=== PATIENT | female | born 1950 | race Asian ===

== ENCOUNTER 2018-02-14 18:22 | Inpatient (IN) | payer MEDICARE, MEDICAID ==
--- NOTE | 2018-02-14 18:33 | ED Physician Chart ---
ED Chief Complaint/HPI - Patient Information Date Seen:: 02/14/18 Time Seen:: 18:20 Chief Complaint:: Agitation History of Present Illness:: onset x 2 days of agitation and aggressive behavior; no report of trauma, H/As, S/T, neck pain, C/P, SOB, Abd. Pain, A/N/V/D/C, fever, chills, SIs, or urinary s /s Historian:: Patient, EMS Review:: Nurse's Note Reviewed, Old Chart Reviewed, EMS run form Reviewed <Aditya Edge - Last Filed: 02/14/18 18:28> - Patient Information Allergies:: Allergies Allergy/AdvReac Type Severity Reaction Status Date / Time No Known Allergies Allergy Verified 02/14/18 18:32 Vitals:: Vital Signs - 8 hr 02/14/18 18:32 Temp 98.1 F HR 82 RR 16 BP 122/67 O2 Sat % 95 <Moira Cruz - Last Filed: 02/14/18 20:29> ED Review of Systems - Review of Systems General/Constitutional: No fever, No chills, No weight loss, No weakness, No diaphoresis, No edema, No loss of appetite Skin: No skin lesions, No rash, No bruising Head: No headache, No light-headedness Eyes: No loss of vision, No pain, No diplopia ENT: No earache, No nasal drainage, No sore throat, No tinnitus Neck: No neck pain, No swelling, No thyromegaly, No stiffness, No mass noted Cardio Vascular: No chest pain, No palpitations, No PND, No orthopnea, No edema Pulmonary: No SOB, No cough, No sputum, No wheezing GI: No nausea, No vomiting, No diarrhea, No pain, No melena, No hematochezia, No constipation, No hematemesis G/U: No dysuria, No frequency, No hematuria, No nacturia Shoe Laster: No vaginal discharge, No abnormal vaginal bleed, No contraction Musculoskeletal: No bone or joint pain, No back pain, No muscle pain Endocrine: No polyuria, No polydipsia Psychiatric: Prior psych history, Depression, Anxiety, No suicidal ideation, No homicidal ideation, No auditory hallucination, No visual hallucination Hematopoietic: No bruising, No lymphadenopathy Allergic/Immuno: No urticaria, No angioedema Neurological: No syncope, No focal symptoms, No weakness, No paresthesia, No headache, No seizure, No dizziness, Confusion, No vertigo <Aditya Edge - Last Filed: 02/14/18 18:28> ED Past Medical History - Past Medical History Obtainable: Yes Past Medical History: Dyslipidemia, Dementia Family History: HTN Social History: Non Smoker, No Alcohol, No Drug Use, Single, Care Facility Surgical History: None Psychiatricy History: Depression, Bipolar, Dementia Medication: Reviewed <Aditya Edge - Last Filed: 02/14/18 18:28> Family Medical History - Family Member Mother History Unknown: Yes <NancyMoira - Last Filed: 02/14/18 20:29> ED Physical Exam - Physical Examination General/Constitutional: Awake, Well-developed, well-nourished, Alert, No distress, GCS 15, Non-toxic appearing, Ambulatory Head: Atraumatic Eyes: Lids, conjuctiva normal, PERRL, EOMI Skin: Nl inspection, No rash, No skin lesions, No ecchymosis, Well hydrated, No lymphadenopathy ENMT: External ears, nose nl, TM canals nl, Nasal exam nl, Lips, teeth, gums nl , Oropharynx nl, Tonsils nl Neck: Nontender, Full ROM w/o pain, No JVD, No nuchal rigidity, No bruit, No mass, No stridor Respiratory: Nl effort/Exclusion, Clear to Auscultation, No Wheeze/Rhonchi/Rales Cardio Vascular: RRR, No murmur, gallop, rubs, NL S1 S2, Carotid/Femoral/Distal pulses equal bilaterally GI: No tenderness/rebounding/guarding, No organomegaly, No hernia, Normal BS's, Nondistended, No mass/bruits, No McBurney tenderness Other GI comments:: no pulsatile masses : No CVA tenderness Extremities: No tenderness or effusion, Full ROM, normal strength in all extremities, No edema, Normal digits & nails Neuro/Psych: Alert/oriented, DTR's symmetric, Normal sensory exam, Normal motor strength, Judgement/insight normal, Mood normal, Normal gait, No focal deficits Other Neuro/Psych comments:: + Psychomotor Agitation; no SIs; Mood/Affect: Stable Misc: Normal back, No paraspinal tenderness <Aditya Edge - Last Filed: 02/14/18 18:28> ED Labs/Radiology/EKG Results - Lab Results Results: Laboratory Tests 02/14/18 02/14/18 02/14/18 18:45 18:45 18:45 WBC 4.8 RBC 3.53 L Hgb 11.9 L Hct 35.4 L MCV 100.4 H MCH 33.7 H MCHC Differential 33.6 RDW 11.1 L Plt Count 328 MPV 7.2 Neutrophils % 62.7 Lymphocytes % 26.8 Monocytes % 7.9 Eosinophils % 2.3 Basophils % 0.3 Sodium 138 Potassium 3.8 Chloride 103 Carbon Dioxide 28.5 Anion Gap 10.3 BUN 13 Creatinine 0.6 Est GFR ( Amer) > 60.0 Est GFR (Non-Af Amer) > 60.0 BUN/Creatinine Ratio 21.7 Glucose 162 H Calcium 9.3 Total Bilirubin 0.5 AST 29 ALT 12 Alkaline Phosphatase 34 Total Protein 6.6 Albumin 4.0 Globulin 2.6 Albumin/Globulin Ratio 1.5 Triglycerides 57 Cholesterol 131 LDL Cholesterol Direct 68 L HDL Cholesterol 51 TSH 1.87 Salicylates < 25.0 L Acetaminophen < 10.0 L Ethyl Alcohol < 10 <Moira Cruz - Last Filed: 02/14/18 20:29> ED Septic Shock - . Is Septic Shock (SBP<90, OR Lactate>4 mmol\L) present?: No <Aditya Edge - Last Filed: 02/14/18 18:28> - . Is Septic Shock (SBP<90, OR Lactate>4 mmol\L) present?: No - <6hrs of presentation: Vital Signs: Vital Signs - 8 hr 02/14/18 18:32 Temp 98.1 F HR 82 RR 16 BP 122/67 O2 Sat % 95 <Moira Cruz - Last Filed: 02/14/18 20:29> ED Reassessment (Disposition) - Reassessment Reassessment Condition:: Improved - Diagnosis Diagnosis:: Agitation; Psychosis; Medical Clearance; Depression; Bipolar Disorder <Aditya Edge - Last Filed: 02/14/18 18:28> - Reassessment Reassessment:: Macrocytic anemia Admit to [facility] unit - Patient Disposition Discharge/Transfer:: Geropsych w/in this hosp Admitting Medical Physician:: Eddi Giang Admitting Psych Physician:: Avis Young <Moira Cruz - Last Filed: 02/14/18 20:29>
[2018-02-14 18:53] LABS: % BASOPHILS 0.3 % (0.0-2.0); % EOSINOPHILS 2.3 % (0.0-5.0); % LYMPHOCYTES 26.8 % (20.0-50.0); % MONOCYTES 7.9 % (2.0-10.0); % NEUTROPHILS 62.7 % (40.0-80.0); EOSINOPHILE ABSOLUTE 0.1 Th/cmm (0.1-0.4); HEMATOCRIT 35.4 % (41.0-60); HEMOGLOBIN 11.9 gm/dL (12-16); LYMPHOCYTE ABSOLUTE 1.3 Th/cmm (1.5-3.0); MEAN CELL VOLUME 100.4 fl (81-100); MEAN CORPUSCULAR HEMOGLOBIN 33.7 pg (27.0-31.0); MEAN CORPUSCULAR HGB CONC 33.6 pg (28.0-36.0); MEAN PLATELET VOLUME 7.2 fl; MONOCYTE ABSOLUTE 0.4 Th/cmm (0.3-1.0); PLATELET COUNT 328 Th/cmm (150-400); RED BLOOD COUNT 3.53 Mil/cmm (3.80-5.20); RED CELL DISTRIBUTION WIDTH 11.1 % (11.5-20.0); WHITE BLOOD COUNT 4.8 Th/cmm (4.8-10.8)
[2018-02-14 19:08] LABS: ACETAMINOPHEN < 10.0 ug/mL (10.0-30.0); ALB/GLOB RATIO 1.5 (1.0-1.8); ALKALINE PHOSPHATASE 34 U/L (34-104); ANION GAP 10.3 (7.0-16.0); BILIRUBIN,TOTAL 0.5 mg/dL (0.3-1.0); BUN - UREA NITROGEN 13 mg/dL (7-25); CALCIUM SERUM 9.3 mg/dL (8.6-10.3); CARBON DIOXIDE 28.5 mEq/L (21.0-31.0); CHLORIDE 103 mEq/L (98-107); CHOLESTEROL 131 mg/dL (<200); CREATININE - SERUM 0.6 mg/dL (0.6-1.2); GFR AFRICAN-AMERICAN > 60.0 ml/min (>90); GFR NON AFRICAN-AMERICAN > 60.0 ml/min; GLUCOSE 162 mg/dL (70-105); HDL -HIGH DENSITY LIPOPROTEIN 51 mg/dL (23-92); POTASSIUM SERUM 3.8 mEq/L (3.5-5.1); SGOT 29 U/L (13-39); SGPT/ALT 12 U/L (7-52); SODIUM SERUM 138 mEq/L (136-145); TOTAL PROTEIN,SERUM 6.6 gm/dL (6.0-8.3); TRIGLYCERIDES 57 mg/dL (<150)
[2018-02-14 19:14] LABS: SALICYLATES (ASPIRIN) < 25.0 mg/L (30.0-100.0)
[2018-02-14 21:23] LABS: A1C % 4.7 % (4.0-6.0)
[2018-02-14 21:43] VITALS: BP 115/60
[2018-02-14] MEDS ORDERED: Fleet Enema 135 mL RC PRN (22:01)
[2018-02-14] MEDS ORDERED: Magnesium Hydroxide (MOM) 30 mL UDC PO PRN (22:01)
[2018-02-14] MEDS ORDERED: [UNRECOGNIZED DRUG - OTHER] PO SCH (22:15)
[2018-02-14] MEDS ORDERED: ALENDRONATE SODIUM PO SCH (22:15)
[2018-02-14] MEDS ORDERED: VITAMIN D3 PO SCH (22:15)
[2018-02-15] MEDS ORDERED: Guaifenesin DM 10 ML UDC PO PRN (00:40)
[2018-02-15] MEDS: Calcium Carb/Vit D 500 mg/200 U Tab PO SCH (09:08)
[2018-02-15] MEDS: Escitalopram Oxalate 5 mg Tab PO SCH (09:08)
--- NOTE | 2018-02-15 23:01 | Psychiatric Evaluation ---
DATE OF SERVICE: 02/15/2018 IDENTIFYING DATA: The patient is a 67-year-old male resident of [facility]. Information obtained directly interviewing the patient as well as reviewing the admission papers. JUSTIFICATION FOR HOSPITALIZATION: The patient is admitted for his aggressive behavior, kicking, screaming and confused and getting easily agitated. HISTORY OF PRESENT ILLNESS: This is the first psychiatric hospitalization to [facility] for this patient who is being followed up by Dr. Giang on an outpatient basis. The patient has been treated with Lexapro and the patient is reported to have been getting out of control and not making any sense. The patient has been having difficult time at this time. The patient is not able to contract for safety and hence the patient has been referred over here for further stabilization. PAST PSYCHIATRIC HISTORY: Details are not known. MEDICAL HISTORY: Physical examination is requested by Dr. Giang. SUBSTANCE ABUSE HISTORY: None. PHYSICAL OR SEXUAL ABUSE HISTORY: None. LEGAL PROBLEMS: None at this time. STRENGTH AND ASSETS: The patient is not able to give any information, currently acutely confused. MENTAL STATUS EXAMINATION: Significant for patient being a 50-year-old, looking his stated age, superficially cooperative, screaming and yelling and very minimal verbalizations with this patient. The patient has no insight into his illness. The patient is alert and awake, but is not able to give any information as well as the cognitive questionnaire is concerned. DIAGNOSTIC IMPRESSION: AXIS I: Psychotic disorder, not otherwise specified. AXIS II: None. AXIS III: As per Dr. Giang. IMMEDIATE TREATMENT PLAN: The patient is going to be observed on inpatient unit, provided with supportive psychotherapy. The patient is going to be closely monitored. Once stabilized, the patient is going to be discharged to [facility] to be followed up on an outpatient basis. JOB# [id number]
--- NOTE | 2018-02-16 08:57 | Internal Medicine Prog Note ---
Internal Medicine Subjective - Subjective Service Date: 02/16/18 Patient seen and examined:: without staff Patient is:: awake, non-verbal, interactive, arousable, in bed, agitated, confused Patient Complaints of:: congestion Per staff patient has:: no adverse event Internal Medicine Objective - Results Result Diagrams: 02/14/18 18:45 02/14/18 18:45 Recent Labs: Laboratory Last Values WBC 4.8 Th/cmm (4.8-10.8) 02/14/18 18:45 RBC 3.53 Mil/cmm (3.80-5.20) L 02/14/18 18:45 Hgb 11.9 gm/dL (12-16) L 02/14/18 18:45 Hct 35.4 % (41.0-60) L 02/14/18 18:45 MCV 100.4 fl (81-100) H 02/14/18 18:45 MCH 33.7 pg (27.0-31.0) H 02/14/18 18:45 MCHC Differential 33.6 pg (28.0-36.0) 02/14/18 18:45 RDW 11.1 % (11.5-20.0) L 02/14/18 18:45 Plt Count 328 Th/cmm (150-400) 02/14/18 18:45 MPV 7.2 fl 02/14/18 18:45 Neutrophils % 62.7 % (40.0-80.0) 02/14/18 18:45 Lymphocytes % 26.8 % (20.0-50.0) 02/14/18 18:45 Monocytes % 7.9 % (2.0-10.0) 02/14/18 18:45 Eosinophils % 2.3 % (0.0-5.0) 18 18:45 Basophils % 0.3 % (0.0-2.0) 02/14/18 18:45 Sodium 138 mEq/L (136-145) 18 18:45 Potassium 3.8 mEq/L (3.5-5.1) 18 18:45 Chloride 103 mEq/L (98-107) 02/14/18 18:45 Carbon Dioxide 28.5 mEq/L (21.0-31.0) 18 18:45 Anion Gap 10.3 (7.0-16.0) 18 18:45 BUN 13 mg/dL (7-25) 18 18:45 Creatinine 0.6 mg/dL (0.6-1.2) 18 18:45 Est GFR ( Amer) > 60.0 ml/min (>90) 02/14/18 18:45 Est GFR (Non-Af Amer) > 60.0 ml/min 18 18:45 BUN/Creatinine Ratio 21.7 18 18:45 Glucose 162 mg/dL (70-105) H 02/14/18 18:45 Hemoglobin A1c % 4.7 % (4.0-6.0) 02/14/18 18:45 Calcium 9.3 mg/dL (8.6-10.3) 02/14/18 18:45 Total Bilirubin 0.5 mg/dL (0.3-1.0) 02/14/18 18:45 AST 29 U/L (13-39) 18 18:45 ALT 12 U/L (7-52) 18 18:45 Alkaline Phosphatase 34 U/L (34-104) 02/14/18 18:45 Total Protein 6.6 gm/dL (6.0-8.3) 02/14/18 18:45 Albumin 4.0 gm/dL (3.7-5.3) 02/14/18 18:45 Globulin 2.6 gm/dL 02/14/18 18:45 Albumin/Globulin Ratio 1.5 (1.0-1.8) 18 18:45 Triglycerides 57 mg/dL (<150) 18 18:45 Cholesterol 131 mg/dL (<200) 18 18:45 LDL Cholesterol Direct 68 mg/dL (75-193) L 18 18:45 HDL Cholesterol 51 mg/dL (23-92) 18 18:45 TSH 1.87 uIU/ml (0.34-5.60) 18 18:45 Salicylates < 25.0 mg/L (30.0-100.0) L 02/14/18 18:45 Acetaminophen < 10.0 ug/mL (10.0-30.0) L 02/14/18 18:45 Ethyl Alcohol < 10 mg/dL (0-10) 02/14/18 18:45 - Physical Exam Vitals and I&O: Vital Signs Temp 97.1 F 02/16/18 06:00 Pulse 74 02/16/18 06:00 Resp 20 02/16/18 06:00 BP 111/64 02/16/18 06:00 Pulse Ox 96 02/16/18 06:00 Intake & Output 02/15/18 02/16/18 02/16/18 18:59 06:59 18:59 Intake Total 500 Balance 500 Intake: Oral 500 Other: # Voids 2 # Bowel Movements 0 Active Medications: Current Medications Alendronate Sodium (Fosamax) 70 mg PO QFRI [facility] Stop: 04/18/18 06:29 Bisacodyl (Dulcolax 10 Mg Supp) 10 mg RC DAILY PRN PRN Reason: Constipation Stop: 04/15/18 22:00 Calcium/Vitamin D (Oscal W/Vitamin D) 1 tab PO DAILY [facility] Stop: 04/16/18 08:59 Last Admin: 02/15/18 09:08 Dose: Not Given Docusate Sodium (Colace) 100 mg PO DAILY [facility] Stop: 04/16/18 08:59 Last Admin: 02/15/18 09:08 Dose: Not Given Escitalopram Oxalate (Lexapro) 5 mg PO Q2D [facility]; Protocol Stop: 04/16/18 08:59 Last Admin: 02/15/18 09:08 Dose: Not Given Guaifenesin/Dextromethorphan (Robitussin Dm) 10 ml PO Q6H PRN PRN Reason: Cough Stop: 04/16/18 00:39 Lorazepam (Ativan) 0.5 mg PO Q6HR PRN; Protocol PRN Reason: Anxiety Stop: 04/15/18 22:05 Last Admin: 02/15/18 13:29 Dose: 0.5 mg Magnesium Hydroxide (Milk Of Magnesia) 30 ml PO DAILY PRN PRN Reason: Constipation Stop: 04/15/18 22:00 Miscellaneous (Optiven) 0.05 drop EACH EYE BID [facility] Stop: 04/16/18 08:59 Simvastatin (Zocor) 20 mg PO HS [facility]; Protocol Stop: 04/16/18 20:59 Last Admin: 02/15/18 20:45 Dose: 20 mg Sodium Phosphate (Fleet Enema) 133 ml RC DAILY PRN PRN Reason: Constipation Stop: 04/15/18 22:00 Vitamin D (Vitamin D3) 2,000 iu PO QFRI [facility] Stop: 04/18/18 06:29 Vitamin D (Vitamin D) 800 iu PO QFRI [facility] Stop: 04/18/18 06:29 Zolpidem Tartrate (Ambien) 5 mg PO HS PRN PRN Reason: Insomnia Stop: 04/15/18 21:43 Last Admin: 02/15/18 20:45 Dose: 5 mg General: weak, lethargic, congested, demented HEENT: NC/AT, PERRLA, EOMI, anicteric sclerae, throat clear, thyromegaly, dry oral mucosa Neck: Supple, No JVD, No thyromegaly Lungs: CTAB Cardiovascular: RRR, Normal S1, Normal S2 Abdomen: soft, non-tender, tender, non-distended, positive bowel sound Extremities: clear Neurological: no change Internal Medicine Assmt/Plan - Assessment Assessment: ALOC: on and off; observe closely. Agitation: better. Acute Psychosis: psychiatry consultation appreciated. Failure to thrive: work up in progreee. Weakness: fall precaution education. s/p CVA DVT prophylaxis.
[2018-02-16] MEDS: Calcium Carb/Vit D 500 mg/200 U Tab PO SCH (09:12)
--- NOTE | 2018-02-16 14:44 | History & Physical ---
ADMIT DATE: 02/14/2018 CHIEF COMPLAINT: Confusion, agitation with aggressive behavior developed in the nursing facility. HISTORY OF PRESENT ILLNESS: The patient is a 67-year-old female admitted from the Emergency Room to [facility] of [facility] by the ER physician. I was told by the nursing facility that the patient became more confused and agitated with aggressive behavior in the fci and that ____ was very concerned and would like to have the patient transferred to the Emergency Room for evaluation, which I agreed. The patient apparently did become more confused and agitated with acute psychosis. Her lab actually is unremarkable, but her mental status did change significantly from her baseline. The patient's TSH was normal at 1.87 and her blood sugar 164. The patient was unable to recognize me when she normally can recognize me easily. PAST MEDICAL HISTORY: Status post CVA, agitation, lot of psychosis, degenerative joint disease and anxiety. PAST SURGICAL HISTORY: Denies significant past surgical history. MEDICATIONS: See medication reconciliation list. ALLERGIES: No known drug allergies. FAMILY HISTORY: Noncontributory. SOCIAL HISTORY: The patient is not without any children, but she has very loving and a caring brother and nephew. REVIEW OF SYSTEMS: Not feasible despite much efforts made. PHYSICAL EXAMINATION: GENERAL: Well-developed thin female, in no acute distress. SKIN: Warm and dry. VITAL SIGNS: Basically stable. HEENT: Normocephalic, atraumatic. Pupils equal, round and reactive to light and accommodation. CHEST: Symmetrical. LUNGS: Few wheezing appreciated. CARDIAC: Normal sinus rhythm. S1 and S2. ABDOMEN: Benign, soft, nontender. EXTREMITIES: No clubbing, cyanosis or edema. Bilaterally 2+ equally. NEUROLOGICAL: Unremarkable. LABORATORY DATA: Reviewed. ASSESSMENT AND PLAN: 1. Acute altered level of consciousness: Probably multifactorial due to metabolic encephalopathy, dementia and acute psychosis. We will observe her closely. 2. Agitation: Observe closely and treat her p.r.n. if needed. 3. Acute psychosis: Psychiatry consultation requested. 4. Failure to thrive: Workup in progress. 5. Difficulty walking: Fall precaution, physical therapy. 6. History of mild cerebrovascular accident. 7. Deep venous thrombosis prophylaxis. [facility]# [id number]
[2018-02-16] MEDS: Polyvinyl Alcohol Ophth Soln 15 mL Bottle EACH EYE SCH (17:16)
--- NOTE | 2018-02-16 19:42 | Progress Notes ---
DATE: 02/16/2018 SUBJECTIVE: Staff was spoken to. The patient is interviewed. Mood is noted to be irritable. Affect is constricted. The patient has been not able to contact for any responses. The patient has been responding to internal stimuli and the patient's sleep is reported to be poor last night. Insight and judgment at this time are noted to be very much impaired. Impulse control is very poor. The patient is feeling restless at this time. The patient has difficult time to open up and then talk. ASSESSMENT: The patient is still impulsive and paranoid. PLAN: To add low dose of the Seroquel that is 12.5 mg and follow the patient with the supportive therapy. JOB# [id number]
[2018-02-17] MEDS ORDERED: Vitamin D3 2,000 IU SGL PO SCH (06:30)
[2018-02-17] MEDS: Escitalopram Oxalate 5 mg Tab PO SCH (09:59)
[2018-02-17] MEDS: Calcium Carb/Vit D 500 mg/200 U Tab PO SCH (10:00)
[2018-02-17] MEDS: Polyvinyl Alcohol Ophth Soln 15 mL Bottle EACH EYE SCH ×2 (10:00→16:20)
--- NOTE | 2018-02-17 23:25 | Internal Medicine Prog Note ---
Internal Medicine Subjective - Subjective Service Date: 02/17/18 Patient seen and examined:: without staff Patient is:: awake, non-verbal, interactive, arousable, in bed, agitated, confused Patient Complaints of:: congestion Per staff patient has:: no adverse event Internal Medicine Objective - Results Result Diagrams: 02/14/18 18:45 02/14/18 18:45 Recent Labs: Laboratory Last Values WBC 4.8 Th/cmm (4.8-10.8) 02/14/18 18:45 RBC 3.53 Mil/cmm (3.80-5.20) L 02/14/18 18:45 Hgb 11.9 gm/dL (12-16) L 02/14/18 18:45 Hct 35.4 % (41.0-60) L 02/14/18 18:45 MCV 100.4 fl (81-100) H 02/14/18 18:45 MCH 33.7 pg (27.0-31.0) H 02/14/18 18:45 MCHC Differential 33.6 pg (28.0-36.0) 02/14/18 18:45 RDW 11.1 % (11.5-20.0) L 02/14/18 18:45 Plt Count 328 Th/cmm (150-400) 02/14/18 18:45 MPV 7.2 fl 02/14/18 18:45 Neutrophils % 62.7 % (40.0-80.0) 02/14/18 18:45 Lymphocytes % 26.8 % (20.0-50.0) 02/14/18 18:45 Monocytes % 7.9 % (2.0-10.0) 02/14/18 18:45 Eosinophils % 2.3 % (0.0-5.0) 18 18:45 Basophils % 0.3 % (0.0-2.0) 18 18:45 Sodium 138 mEq/L (136-145) 18 18:45 Potassium 3.8 mEq/L (3.5-5.1) 18 18:45 Chloride 103 mEq/L (98-107) 02/14/18 18:45 Carbon Dioxide 28.5 mEq/L (21.0-31.0) 18 18:45 Anion Gap 10.3 (7.0-16.0) 18 18:45 BUN 13 mg/dL (7-25) 18 18:45 Creatinine 0.6 mg/dL (0.6-1.2) 18 18:45 Est GFR ( Amer) > 60.0 ml/min (>90) 02/14/18 18:45 Est GFR (Non-Af Amer) > 60.0 ml/min 18 18:45 BUN/Creatinine Ratio 21.7 18 18:45 Glucose 162 mg/dL (70-105) H 02/14/18 18:45 Hemoglobin A1c % 4.7 % (4.0-6.0) 02/14/18 18:45 Calcium 9.3 mg/dL (8.6-10.3) 02/14/18 18:45 Total Bilirubin 0.5 mg/dL (0.3-1.0) 02/14/18 18:45 AST 29 U/L (13-39) 18 18:45 ALT 12 U/L (7-52) 18 18:45 Alkaline Phosphatase 34 U/L (34-104) 02/14/18 18:45 Total Protein 6.6 gm/dL (6.0-8.3) 02/14/18 18:45 Albumin 4.0 gm/dL (3.7-5.3) 02/14/18 18:45 Globulin 2.6 gm/dL 02/14/18 18:45 Albumin/Globulin Ratio 1.5 (1.0-1.8) 18 18:45 Triglycerides 57 mg/dL (<150) 18 18:45 Cholesterol 131 mg/dL (<200) 18 18:45 LDL Cholesterol Direct 68 mg/dL (75-193) L 18 18:45 HDL Cholesterol 51 mg/dL (23-92) 18 18:45 TSH 1.87 uIU/ml (0.34-5.60) 18 18:45 Salicylates < 25.0 mg/L (30.0-100.0) L 02/14/18 18:45 Acetaminophen < 10.0 ug/mL (10.0-30.0) L 02/14/18 18:45 Ethyl Alcohol < 10 mg/dL (0-10) 02/14/18 18:45 RPR NONREACTIVE (NONREACTIVE) 02/14/18 18:45 - Physical Exam Vitals and I&O: Vital Signs Temp 98.1 F 02/17/18 22:15 Pulse 80 02/17/18 22:15 Resp 21 02/17/18 22:15 BP 108/54 02/17/18 22:15 Pulse Ox 95 02/17/18 22:15 Intake & Output 02/17/18 02/17/18 02/18/18 06:59 18:59 06:59 Intake Total 1000 Balance 1000 Intake: Oral 1000 Other: # Voids 2 # Bowel Movements 0 Active Medications: Current Medications Alendronate Sodium (Fosamax) 70 mg PO QFRI [facility] Stop: 04/18/18 06:29 Last Admin: 02/17/18 06:48 Dose: 70 mg Artificial Tears (Artificial Tears Ophth Soln) 1 drop EACH EYE BID [facility] Stop: 04/17/18 16:59 Last Admin: 02/17/18 16:20 Dose: 1 drop Bisacodyl (Dulcolax 10 Mg Supp) 10 mg RC DAILY PRN PRN Reason: Constipation Stop: 04/15/18 22:00 Calcium/Vitamin D (Oscal W/Vitamin D) 1 tab PO DAILY [facility] Stop: 04/16/18 08:59 Last Admin: 02/17/18 10:00 Dose: 1 tab Docusate Sodium (Colace) 100 mg PO DAILY [facility] Stop: 04/16/18 08:59 Last Admin: 02/17/18 10:00 Dose: 100 mg Escitalopram Oxalate (Lexapro) 5 mg PO Q2D [facility]; Protocol Stop: 04/16/18 08:59 Last Admin: 02/17/18 09:59 Dose: 5 mg Guaifenesin/Dextromethorphan (Robitussin Dm) 10 ml PO Q6H PRN PRN Reason: Cough Stop: 04/16/18 00:39 Lorazepam (Ativan) 0.5 mg PO Q6HR PRN; Protocol PRN Reason: Anxiety Stop: 04/15/18 22:05 Last Admin: 02/17/18 20:49 Dose: 0.5 mg Magnesium Hydroxide (Milk Of Magnesia) 30 ml PO DAILY PRN PRN Reason: Constipation Stop: 04/15/18 22:00 Quetiapine Fumarate (Seroquel) 12.5 mg PO HS [facility]; Protocol Stop: 04/17/18 20:59 Last Admin: 02/17/18 20:49 Dose: 12.5 mg Simvastatin (Zocor) 20 mg PO HS [facility]; Protocol Stop: 04/16/18 20:59 Last Admin: 02/17/18 20:50 Dose: 20 mg Sodium Phosphate (Fleet Enema) 133 ml RC DAILY PRN PRN Reason: Constipation Stop: 04/15/18 22:00 Vitamin D (Vitamin D3) 2,000 iu PO QFRI [facility] Stop: 04/18/18 06:29 Last Admin: 02/17/18 06:48 Dose: 2,000 iu Vitamin D (Vitamin D) 800 iu PO QFRI [facility] Stop: 04/18/18 06:29 Last Admin: 02/17/18 06:48 Dose: 800 iu Zolpidem Tartrate (Ambien) 5 mg PO HS PRN PRN Reason: Insomnia Stop: 04/15/18 21:43 Last Admin: 02/17/18 20:49 Dose: 5 mg General: weak, lethargic, congested, demented HEENT: NC/AT, PERRLA, EOMI, anicteric sclerae, throat clear, thyromegaly, dry oral mucosa Neck: Supple, No JVD, No thyromegaly Lungs: CTAB Cardiovascular: RRR, Normal S1, Normal S2 Abdomen: soft, non-tender, tender, non-distended, positive bowel sound Extremities: clear Neurological: no change Internal Medicine Assmt/Plan - Assessment Assessment: Failure to thrive: work up in progress. ALOC: on and off; observe closely. Agitation: better. Acute Psychosis: psychiatry consultation appreciated. Weakness: fall precaution education. s/p CVA DVT prophylaxis. Nutritional Asmnt/Malnutr-PDOC - Dietary Evaluation Malnutrition Findings (Please click <Entered> for more info): Nutritional Asmnt/Malnutrition Start: 02/17/18 14: 19 Text: Status: Complete Freq: Protocol: Document 02/17/18 14:19 TOI (Rec: 02/17/18 14:43 LCHENLorrie [email or web address]) Nutritional Asmnt/Malnutrition Patient General Information Nutritional Screening Moderate Risk Diagnosis psychosis Pertinent Medical Hx/Surgical Hx s/p CVA, agitation, psychosis, DJD, anxiety Subjective Information Spoke with RADHA Cash. Pt is non -verbal, tolerating current diet. Pt eats everything with feeding assistance. Per EMR, PO intake 25-50% of meals. Current Diet Order/ Nutrition Support pureed, fortified Pertinent Medications oscal w/ vit D, coalce, seroquel, vit D3, Vit D Pertinent Labs 02/14 glucose 162, A1c 4.7 Nutritional Hx/Data Height 1.55 m Height (Calculated Centimeters) 154.9 Current Weight (lbs) 65.771 kg Weight (Calculated Kilograms) 65.8 Weight (Calculated Grams) 05444.9 [place] Body Weight 105 Body Mass Index (BMI) 27.3 Weight Status Overweight GI Symptoms GI Symptoms None Last BM none Difficult in: None Skin Integrity/Comment: intact Current %PO Poor (25-49%) Estimated Nutritional Goals BEE in Kcals: Adj wt of IBW Calories/Kcals/Kg 25-30 adj wt 52kg Kcals Calculated 9270-4229 Protein: Adj wt of IBW Protein g/k Protein Calculated 52 Fluid: ml 7900-7519 Nutritional Problem No current Nutrition Prob Problem n/A Intervention/Recommendation Comments 1. Continue with pureed diet as ordered. Nurses please feed pt with each meals. 2. Monitor PO intake, wt, labs and skin integrity 3. F/U as low risk in 7 days, 02/24 Expected Outcomes/Goals Expected Outcomes/Goals 1. PO intake to meet at least 75% of nutritional needs. 2. Wt stability, skin to remain intact, labs to approach WNL.
--- NOTE | 2018-02-18 06:39 | Progress Notes ---
DATE: 02/17/2018 PSYCHIATRIC PROGRESS NOTE SUBJECTIVE: Staff was spoken to. The patient is interviewed. Mood is noted to be dysphoric. The patient has been trying to fight with the staff and the patient not allowing the staff to help her with any of the activities such as changing the diaper. The patient is not able to participate in any of the groups. The patient is bedridden most of the time. ASSESSMENT: The patient is still impulsive. PLAN: To continue the patient with supportive therapy and follow. JOB# [id number]
[2018-02-18] MEDS: Calcium Carb/Vit D 500 mg/200 U Tab PO SCH (09:03)
[2018-02-18] MEDS: Polyvinyl Alcohol Ophth Soln 15 mL Bottle EACH EYE SCH ×2 (09:04→17:41)
--- NOTE | 2018-02-18 12:52 | Internal Medicine Prog Note ---
Internal Medicine Subjective - Subjective Service Date: 02/18/18 Patient seen and examined:: without staff Patient is:: awake, non-verbal, interactive, arousable, in bed, agitated, confused Patient Complaints of:: congestion Per staff patient has:: no adverse event Internal Medicine Objective - Results Result Diagrams: 02/14/18 18:45 02/14/18 18:45 Recent Labs: Laboratory Last Values WBC 4.8 Th/cmm (4.8-10.8) 02/14/18 18:45 RBC 3.53 Mil/cmm (3.80-5.20) L 02/14/18 18:45 Hgb 11.9 gm/dL (12-16) L 02/14/18 18:45 Hct 35.4 % (41.0-60) L 02/14/18 18:45 MCV 100.4 fl (81-100) H 02/14/18 18:45 MCH 33.7 pg (27.0-31.0) H 02/14/18 18:45 MCHC Differential 33.6 pg (28.0-36.0) 02/14/18 18:45 RDW 11.1 % (11.5-20.0) L 02/14/18 18:45 Plt Count 328 Th/cmm (150-400) 02/14/18 18:45 MPV 7.2 fl 02/14/18 18:45 Neutrophils % 62.7 % (40.0-80.0) 02/14/18 18:45 Lymphocytes % 26.8 % (20.0-50.0) 02/14/18 18:45 Monocytes % 7.9 % (2.0-10.0) 02/14/18 18:45 Eosinophils % 2.3 % (0.0-5.0) 18 18:45 Basophils % 0.3 % (0.0-2.0) 18 18:45 Sodium 138 mEq/L (136-145) 18 18:45 Potassium 3.8 mEq/L (3.5-5.1) 18 18:45 Chloride 103 mEq/L (98-107) 02/14/18 18:45 Carbon Dioxide 28.5 mEq/L (21.0-31.0) 18 18:45 Anion Gap 10.3 (7.0-16.0) 18 18:45 BUN 13 mg/dL (7-25) 18 18:45 Creatinine 0.6 mg/dL (0.6-1.2) 18 18:45 Est GFR ( Amer) > 60.0 ml/min (>90) 02/14/18 18:45 Est GFR (Non-Af Amer) > 60.0 ml/min 18 18:45 BUN/Creatinine Ratio 21.7 18 18:45 Glucose 162 mg/dL (70-105) H 02/14/18 18:45 Hemoglobin A1c % 4.7 % (4.0-6.0) 02/14/18 18:45 Calcium 9.3 mg/dL (8.6-10.3) 02/14/18 18:45 Total Bilirubin 0.5 mg/dL (0.3-1.0) 02/14/18 18:45 AST 29 U/L (13-39) 18 18:45 ALT 12 U/L (7-52) 18 18:45 Alkaline Phosphatase 34 U/L (34-104) 02/14/18 18:45 Total Protein 6.6 gm/dL (6.0-8.3) 02/14/18 18:45 Albumin 4.0 gm/dL (3.7-5.3) 02/14/18 18:45 Globulin 2.6 gm/dL 02/14/18 18:45 Albumin/Globulin Ratio 1.5 (1.0-1.8) 18 18:45 Triglycerides 57 mg/dL (<150) 18 18:45 Cholesterol 131 mg/dL (<200) 18 18:45 LDL Cholesterol Direct 68 mg/dL (75-193) L 18 18:45 HDL Cholesterol 51 mg/dL (23-92) 18 18:45 TSH 1.87 uIU/ml (0.34-5.60) 18 18:45 Salicylates < 25.0 mg/L (30.0-100.0) L 02/14/18 18:45 Acetaminophen < 10.0 ug/mL (10.0-30.0) L 02/14/18 18:45 Ethyl Alcohol < 10 mg/dL (0-10) 02/14/18 18:45 RPR NONREACTIVE (NONREACTIVE) 02/14/18 18:45 - Physical Exam Vitals and I&O: Vital Signs Temp 98.1 F 02/17/18 22:15 Pulse 80 02/17/18 22:15 Resp 21 02/17/18 22:15 BP 108/54 02/17/18 22:15 Pulse Ox 95 02/17/18 22:15 Intake & Output 02/17/18 02/18/18 02/18/18 18:59 06:59 18:59 Intake Total 1000 Balance 1000 Intake: Oral 1000 Other: # Voids 2 # Bowel Movements 0 Active Medications: Current Medications Alendronate Sodium (Fosamax) 70 mg PO QFRI [facility] Stop: 04/18/18 06:29 Last Admin: 02/17/18 06:48 Dose: 70 mg Artificial Tears (Artificial Tears Ophth Soln) 1 drop EACH EYE BID [facility] Stop: 04/17/18 16:59 Last Admin: 02/18/18 09:04 Dose: 1 drop Bisacodyl (Dulcolax 10 Mg Supp) 10 mg RC DAILY PRN PRN Reason: Constipation Stop: 04/15/18 22:00 Calcium/Vitamin D (Oscal W/Vitamin D) 1 tab PO DAILY [facility] Stop: 04/16/18 08:59 Last Admin: 02/18/18 09:03 Dose: 1 tab Docusate Sodium (Colace) 100 mg PO DAILY [facility] Stop: 04/16/18 08:59 Last Admin: 02/18/18 09:04 Dose: Not Given Escitalopram Oxalate (Lexapro) 5 mg PO Q2D [facility]; Protocol Stop: 04/16/18 08:59 Last Admin: 02/17/18 09:59 Dose: 5 mg Guaifenesin/Dextromethorphan (Robitussin Dm) 10 ml PO Q6H PRN PRN Reason: Cough Stop: 04/16/18 00:39 Lorazepam (Ativan) 0.5 mg PO Q6HR PRN; Protocol PRN Reason: Anxiety Stop: 04/15/18 22:05 Last Admin: 02/17/18 20:49 Dose: 0.5 mg Magnesium Hydroxide (Milk Of Magnesia) 30 ml PO DAILY PRN PRN Reason: Constipation Stop: 04/15/18 22:00 Quetiapine Fumarate (Seroquel) 25 mg PO HS [facility]; Protocol Stop: 04/19/18 20:59 Simvastatin (Zocor) 20 mg PO HS [facility]; Protocol Stop: 04/16/18 20:59 Last Admin: 02/17/18 20:50 Dose: 20 mg Sodium Phosphate (Fleet Enema) 133 ml RC DAILY PRN PRN Reason: Constipation Stop: 04/15/18 22:00 Vitamin D (Vitamin D3) 2,000 iu PO QFRI [facility] Stop: 04/18/18 06:29 Last Admin: 02/17/18 06:48 Dose: 2,000 iu Vitamin D (Vitamin D) 800 iu PO QFRI [facility] Stop: 04/18/18 06:29 Last Admin: 02/17/18 06:48 Dose: 800 iu Zolpidem Tartrate (Ambien) 5 mg PO HS PRN PRN Reason: Insomnia Stop: 04/15/18 21:43 Last Admin: 02/17/18 20:49 Dose: 5 mg General: weak, lethargic, congested, demented HEENT: NC/AT, PERRLA, EOMI, anicteric sclerae, throat clear, thyromegaly, dry oral mucosa Neck: Supple, No JVD, No thyromegaly Lungs: CTAB Cardiovascular: RRR, Normal S1, Normal S2 Abdomen: soft, non-tender, tender, non-distended, positive bowel sound Extremities: clear Neurological: no change Internal Medicine Assmt/Plan - Assessment Assessment: Weakness: fall precaution education. Failure to thrive: work up in progress. ALOC: on and off; observe closely. Agitation: better. Acute Psychosis: psychiatry consultation appreciated. s/p CVA DVT prophylaxis. Nutritional Asmnt/Malnutr-PDOC - Dietary Evaluation Malnutrition Findings (Please click <Entered> for more info): Nutritional Asmnt/Malnutrition Start: 02/17/18 14: 19 Text: Status: Complete Freq: Protocol: Document 02/17/18 14:19 ROSAG (Rec: 02/17/18 14:43 ROSAG [id number]) Nutritional Asmnt/Malnutrition Patient General Information Nutritional Screening Moderate Risk Diagnosis psychosis Pertinent Medical Hx/Surgical Hx s/p CVA, agitation, psychosis, DJD, anxiety Subjective Information Spoke with RADHA Cash. Pt is non -verbal, tolerating current diet. Pt eats everything with feeding assistance. Per EMR, PO intake 25-50% of meals. Current Diet Order/ Nutrition Support pureed, fortified Pertinent Medications oscal w/ vit D, coalce, seroquel, vit D3, Vit D Pertinent Labs 02/14 glucose 162, A1c 4.7 Nutritional Hx/Data Height 1.55 m Height (Calculated Centimeters) 154.9 Current Weight (lbs) 65.771 kg Weight (Calculated Kilograms) 65.8 Weight (Calculated Grams) 16926.9 [place] Body Weight 105 Body Mass Index (BMI) 27.3 Weight Status Overweight GI Symptoms GI Symptoms None Last BM none Difficult in: None Skin Integrity/Comment: intact Current %PO Poor (25-49%) Estimated Nutritional Goals BEE in Kcals: Adj wt of IBW Calories/Kcals/Kg 25-30 adj wt 52kg Kcals Calculated 1423-6311 Protein: Adj wt of IBW Protein g/k Protein Calculated 52 Fluid: ml 1607-2814 Nutritional Problem No current Nutrition Prob Problem n/A Intervention/Recommendation Comments 1. Continue with pureed diet as ordered. Nurses please feed pt with each meals. 2. Monitor PO intake, wt, labs and skin integrity 3. F/U as low risk in 7 days, 02/24 Expected Outcomes/Goals Expected Outcomes/Goals 1. PO intake to meet at least 75% of nutritional needs. 2. Wt stability, skin to remain intact, labs to approach WNL.
--- NOTE | 2018-02-18 17:45 | Progress Notes ---
DATE: 02/18/2018 SUBJECTIVE: Staff was spoken to. The patient is interviewed. Mood is noted to be less irritable. The patient has been isolative and withdrawn. The patient has been taking most of the time. The patient is currently on 12.5 mg of the Seroquel at night time and has been able to tolerate the medications. No side effects to the medications are noted. The patient has been able to tolerate the medication. In view of the paranoia and agitation, the Seroquel is going to be increased to 25 mg and the patient is going to be followed up with the supportive therapy. ASSESSMENT: The patient is still impulsive. PLAN: To continue the patient with the current medications and followup. [facility]# [id number]
--- NOTE | 2018-02-19 10:42 | Consultation ---
DATE OF CONSULTATION: 02/17/2018 REQUESTING PHYSICIAN: Avis Young MD TYPE OF CONSULTATION: Psychology. HISTORY OF PRESENT ILLNESS: The patient is a 67-year-old female. The patient is a resident of [facility]. The following is by review of the medical record and by the patient's self-report. The patient is being admitted due to aggressive behavior. Staff at the patient's facility report that she has been kicking and screaming at staff members as well as other residents. The patient appears to be easily agitated during the clinical interview. The patient appears to be confused. The patient is not making much sense during the clinical assessment. The patient is unable to verbally contract for safety. The patient did not answer questions about suicidal ideation, plan or intention. PAST MEDICAL HISTORY: Please see history and physical by Dr. Giang. PAST PSYCHIATRIC HISTORY: No records are available. Details are unknown. SUBSTANCE ABUSE HISTORY: The patient did not answer these questions. PSYCHOSOCIAL HISTORY: The patient did not answer these questions. The patient presents as quite confused. She did not answer questions about occupation or educational history or spiritism affiliation. She did not answer questions about family involvement or relationships. The patient did not answer questions about history of physical or sexual abuse or current legal problems. MENTAL STATUS EXAMINATION: The patient appears to be her stated age. The patient's attitude is superficially cooperative. Speech is loud with yelling episodes during the clinical interview. Eye contact is poor. Mood is irritable. Affect is mood congruent and reactive. Thought process shows to be confused. The patient did not answer questions about suicidal ideation, plan or intention. The patient denied any auditory or visual hallucinations. There is evidence at present of possible paranoid ideation. The patient is limited in giving responses verbally. Concentration is poor. Impulse control is inadequate. The patient did not participate in the memory assessment. Sensorium is alert and oriented to self only. The patient did not participate in the interpretation of proverbs. Insight is poor. Judgment is poor. DIAGNOSTIC IMPRESSION: AXIS I: Psychotic disorder, not otherwise specified. AXIS II: Deferred. AXIS III: Per Dr. Giang. TREATMENT PLAN: The patient has been seen by Dr. Young for psychiatric evaluation and further management of the patient's psychotropic medications. We will provide supportive psychotherapy to include reality orientation, differentiation and integration. We will provide limit setting and de-escalation. We will provide motivational enhancement for the patient to become compliant and stay compliant with all aspects of her care and treatment. We will provide coping strategies for phase of life issues. We will encourage the patient to be able to demonstrate emotional and self-regulation prior to discharge. Thank you, Dr. Young for this consult and the opportunity to participate in this patient's care. [facility]# [id number] TORRI
[2018-02-19] MEDS: Calcium Carb/Vit D 500 mg/200 U Tab PO SCH (12:09)
[2018-02-19] MEDS: Escitalopram Oxalate 5 mg Tab PO SCH (12:09)
[2018-02-19] MEDS: Polyvinyl Alcohol Ophth Soln 15 mL Bottle EACH EYE SCH ×2 (12:09→17:16)
--- NOTE | 2018-02-19 22:11 | Progress Notes ---
DATE: 02/19/2018 PSYCHIATRIC PROGRESS NOTE SUBJECTIVE: Staff was spoken to. The patient is interviewed. Mood is noted to be irritable. Affect is constricted. The patient's family came to visit and they want the patient to have the physical therapy and the patient at this time is not able to get up and walk. The patient has been getting easily irritable and angry. The patient is currently on 25 mg of the Seroquel and has been able to tolerate the medications. No side effects to the medications are noted. ASSESSMENT: The patient is still psychotic and impulsive. PLAN: To continue the patient with the supportive therapy and followup. [facility]# [id number]
--- NOTE | 2018-02-19 23:39 | Internal Medicine Prog Note ---
Internal Medicine Subjective - Subjective Service Date: 02/19/18 Patient seen and examined:: without staff Patient is:: awake, non-verbal, interactive, arousable, in bed, agitated, confused Patient Complaints of:: congestion Per staff patient has:: no adverse event Internal Medicine Objective - Results Result Diagrams: 02/14/18 18:45 02/14/18 18:45 Recent Labs: Laboratory Last Values WBC 4.8 Th/cmm (4.8-10.8) 02/14/18 18:45 RBC 3.53 Mil/cmm (3.80-5.20) L 02/14/18 18:45 Hgb 11.9 gm/dL (12-16) L 02/14/18 18:45 Hct 35.4 % (41.0-60) L 02/14/18 18:45 MCV 100.4 fl (81-100) H 02/14/18 18:45 MCH 33.7 pg (27.0-31.0) H 02/14/18 18:45 MCHC Differential 33.6 pg (28.0-36.0) 02/14/18 18:45 RDW 11.1 % (11.5-20.0) L 02/14/18 18:45 Plt Count 328 Th/cmm (150-400) 02/14/18 18:45 MPV 7.2 fl 02/14/18 18:45 Neutrophils % 62.7 % (40.0-80.0) 02/14/18 18:45 Lymphocytes % 26.8 % (20.0-50.0) 02/14/18 18:45 Monocytes % 7.9 % (2.0-10.0) 02/14/18 18:45 Eosinophils % 2.3 % (0.0-5.0) 18 18:45 Basophils % 0.3 % (0.0-2.0) 02/14/18 18:45 Sodium 138 mEq/L (136-145) 18 18:45 Potassium 3.8 mEq/L (3.5-5.1) 18 18:45 Chloride 103 mEq/L (98-107) 02/14/18 18:45 Carbon Dioxide 28.5 mEq/L (21.0-31.0) 18 18:45 Anion Gap 10.3 (7.0-16.0) 18 18:45 BUN 13 mg/dL (7-25) 18 18:45 Creatinine 0.6 mg/dL (0.6-1.2) 18 18:45 Est GFR ( Amer) > 60.0 ml/min (>90) 02/14/18 18:45 Est GFR (Non-Af Amer) > 60.0 ml/min 18 18:45 BUN/Creatinine Ratio 21.7 18 18:45 Glucose 162 mg/dL (70-105) H 02/14/18 18:45 Hemoglobin A1c % 4.7 % (4.0-6.0) 02/14/18 18:45 Calcium 9.3 mg/dL (8.6-10.3) 02/14/18 18:45 Total Bilirubin 0.5 mg/dL (0.3-1.0) 02/14/18 18:45 AST 29 U/L (13-39) 18 18:45 ALT 12 U/L (7-52) 18 18:45 Alkaline Phosphatase 34 U/L (34-104) 02/14/18 18:45 Total Protein 6.6 gm/dL (6.0-8.3) 02/14/18 18:45 Albumin 4.0 gm/dL (3.7-5.3) 02/14/18 18:45 Globulin 2.6 gm/dL 02/14/18 18:45 Albumin/Globulin Ratio 1.5 (1.0-1.8) 18 18:45 Triglycerides 57 mg/dL (<150) 18 18:45 Cholesterol 131 mg/dL (<200) 18 18:45 LDL Cholesterol Direct 68 mg/dL (75-193) L 18 18:45 HDL Cholesterol 51 mg/dL (23-92) 18 18:45 TSH 1.87 uIU/ml (0.34-5.60) 18 18:45 Salicylates < 25.0 mg/L (30.0-100.0) L 02/14/18 18:45 Acetaminophen < 10.0 ug/mL (10.0-30.0) L 02/14/18 18:45 Ethyl Alcohol < 10 mg/dL (0-10) 02/14/18 18:45 RPR NONREACTIVE (NONREACTIVE) 02/14/18 18:45 - Physical Exam Vitals and I&O: Vital Signs Temp 98.4 F 02/19/18 20:16 Pulse 88 02/19/18 20:16 Resp 19 02/19/18 20:16 BP 120/70 02/19/18 20:16 Pulse Ox 96 02/19/18 20:16 Intake & Output 02/19/18 02/19/18 02/20/18 06:59 18:59 06:59 Intake Total 1200 120 Balance 1200 120 Intake: Oral 1200 120 Other: # Voids 2 1 # Bowel Movements 0 Active Medications: Current Medications Alendronate Sodium (Fosamax) 70 mg PO QFRI [facility] Stop: 04/18/18 06:29 Last Admin: 02/17/18 06:48 Dose: 70 mg Artificial Tears (Artificial Tears Ophth Soln) 1 drop EACH EYE BID [facility] Stop: 04/17/18 16:59 Last Admin: 02/19/18 17:16 Dose: 1 drop Bisacodyl (Dulcolax 10 Mg Supp) 10 mg RC DAILY PRN PRN Reason: Constipation Stop: 04/15/18 22:00 Calcium/Vitamin D (Oscal W/Vitamin D) 1 tab PO DAILY [facility] Stop: 04/16/18 08:59 Last Admin: 02/19/18 12:09 Dose: Not Given Docusate Sodium (Colace) 100 mg PO DAILY [facility] Stop: 04/16/18 08:59 Last Admin: 02/19/18 12:09 Dose: Not Given Escitalopram Oxalate (Lexapro) 5 mg PO Q2D [facility]; Protocol Stop: 04/16/18 08:59 Last Admin: 02/19/18 12:09 Dose: Not Given Guaifenesin/Dextromethorphan (Robitussin Dm) 10 ml PO Q6H PRN PRN Reason: Cough Stop: 04/16/18 00:39 Lorazepam (Ativan) 0.5 mg PO Q6HR PRN; Protocol PRN Reason: Anxiety Stop: 04/15/18 22:05 Last Admin: 07/22/18 23:05 Dose: 0.5 mg Magnesium Hydroxide (Milk Of Magnesia) 30 ml PO DAILY PRN PRN Reason: Constipation Stop: 04/15/18 22:00 Quetiapine Fumarate (Seroquel) 25 mg PO HS [facility]; Protocol Stop: 04/19/18 20:59 Last Admin: 02/19/18 20:13 Dose: 25 mg Simvastatin (Zocor) 20 mg PO HS [facility]; Protocol Stop: 04/16/18 20:59 Last Admin: 02/19/18 20:13 Dose: 20 mg Sodium Phosphate (Fleet Enema) 133 ml RC DAILY PRN PRN Reason: Constipation Stop: 04/15/18 22:00 Vitamin D (Vitamin D3) 2,000 iu PO QFRI [facility] Stop: 04/18/18 06:29 Last Admin: 02/17/18 06:48 Dose: 2,000 iu Vitamin D (Vitamin D) 800 iu PO QFRI [facility] Stop: 04/18/18 06:29 Last Admin: 02/17/18 06:48 Dose: 800 iu Zolpidem Tartrate (Ambien) 5 mg PO HS PRN PRN Reason: Insomnia Stop: 04/15/18 21:43 Last Admin: 02/19/18 20:18 Dose: 5 mg General: weak, lethargic, congested, demented HEENT: NC/AT, PERRLA, EOMI, anicteric sclerae, throat clear, thyromegaly, dry oral mucosa Neck: Supple, No JVD, No thyromegaly Lungs: CTAB Cardiovascular: RRR, Normal S1, Normal S2 Abdomen: soft, non-tender, tender, non-distended, positive bowel sound Extremities: clear Neurological: no change Internal Medicine Assmt/Plan - Assessment Assessment: ALOC: on and off; observe closely. Weakness: fall precaution education. Failure to thrive: work up in progress. Agitation: better. Acute Psychosis: psychiatry consultation appreciated. s/p CVA DVT prophylaxis. D/W family. Nutritional Asmnt/Malnutr-PDOC - Dietary Evaluation Malnutrition Findings (Please click <Entered> for more info): Nutritional Asmnt/Malnutrition Start: 02/17/18 14: 19 Text: Status: Complete Freq: Protocol: Document 02/17/18 14:19 TOI (Rec: 02/17/18 14:43 TOI [email or web address]) Nutritional Asmnt/Malnutrition Patient General Information Nutritional Screening Moderate Risk Diagnosis psychosis Pertinent Medical Hx/Surgical Hx s/p CVA, agitation, psychosis, DJD, anxiety Subjective Information Spoke with RADHA Cash. Pt is non -verbal, tolerating current diet. Pt eats everything with feeding assistance. Per EMR, PO intake 25-50% of meals. Current Diet Order/ Nutrition Support pureed, fortified Pertinent Medications oscal w/ vit D, coalce, seroquel, vit D3, Vit D Pertinent Labs 02/14 glucose 162, A1c 4.7 Nutritional Hx/Data Height 1.55 m Height (Calculated Centimeters) 154.9 Current Weight (lbs) 65.771 kg Weight (Calculated Kilograms) 65.8 Weight (Calculated Grams) 03975.9 [place] Body Weight 105 Body Mass Index (BMI) 27.3 Weight Status Overweight GI Symptoms GI Symptoms None Last BM none Difficult in: None Skin Integrity/Comment: intact Current %PO Poor (25-49%) Estimated Nutritional Goals BEE in Kcals: Adj wt of IBW Calories/Kcals/Kg 25-30 adj wt 52kg Kcals Calculated 3156-4168 Protein: Adj wt of IBW Protein g/k Protein Calculated 52 Fluid: ml 6010-6904 Nutritional Problem No current Nutrition Prob Problem n/A Intervention/Recommendation Comments 1. Continue with pureed diet as ordered. Nurses please feed pt with each meals. 2. Monitor PO intake, wt, labs and skin integrity 3. F/U as low risk in 7 days, 02/24 Expected Outcomes/Goals Expected Outcomes/Goals 1. PO intake to meet at least 75% of nutritional needs. 2. Wt stability, skin to remain intact, labs to approach WNL.
[2018-02-20] MEDS: Calcium Carb/Vit D 500 mg/200 U Tab PO SCH (13:52)
[2018-02-20] MEDS: Polyvinyl Alcohol Ophth Soln 15 mL Bottle EACH EYE SCH (13:52)
--- NOTE | 2018-02-20 21:32 | Internal Medicine Prog Note ---
Internal Medicine Subjective - Subjective Service Date: 02/20/18 Patient seen and examined:: without staff Patient is:: awake, non-verbal, interactive, arousable, in bed, agitated, confused Patient Complaints of:: congestion Per staff patient has:: no adverse event Internal Medicine Objective - Results Result Diagrams: 02/14/18 18:45 02/14/18 18:45 Recent Labs: Laboratory Last Values WBC 4.8 Th/cmm (4.8-10.8) 02/14/18 18:45 RBC 3.53 Mil/cmm (3.80-5.20) L 02/14/18 18:45 Hgb 11.9 gm/dL (12-16) L 02/14/18 18:45 Hct 35.4 % (41.0-60) L 02/14/18 18:45 MCV 100.4 fl (81-100) H 02/14/18 18:45 MCH 33.7 pg (27.0-31.0) H 02/14/18 18:45 MCHC Differential 33.6 pg (28.0-36.0) 02/14/18 18:45 RDW 11.1 % (11.5-20.0) L 02/14/18 18:45 Plt Count 328 Th/cmm (150-400) 02/14/18 18:45 MPV 7.2 fl 02/14/18 18:45 Neutrophils % 62.7 % (40.0-80.0) 02/14/18 18:45 Lymphocytes % 26.8 % (20.0-50.0) 02/14/18 18:45 Monocytes % 7.9 % (2.0-10.0) 02/14/18 18:45 Eosinophils % 2.3 % (0.0-5.0) 18 18:45 Basophils % 0.3 % (0.0-2.0) 18 18:45 Sodium 138 mEq/L (136-145) 18 18:45 Potassium 3.8 mEq/L (3.5-5.1) 18 18:45 Chloride 103 mEq/L (98-107) 02/14/18 18:45 Carbon Dioxide 28.5 mEq/L (21.0-31.0) 18 18:45 Anion Gap 10.3 (7.0-16.0) 18 18:45 BUN 13 mg/dL (7-25) 18 18:45 Creatinine 0.6 mg/dL (0.6-1.2) 18 18:45 Est GFR ( Amer) > 60.0 ml/min (>90) 02/14/18 18:45 Est GFR (Non-Af Amer) > 60.0 ml/min 18 18:45 BUN/Creatinine Ratio 21.7 18 18:45 Glucose 162 mg/dL (70-105) H 02/14/18 18:45 Hemoglobin A1c % 4.7 % (4.0-6.0) 02/14/18 18:45 Calcium 9.3 mg/dL (8.6-10.3) 02/14/18 18:45 Total Bilirubin 0.5 mg/dL (0.3-1.0) 02/14/18 18:45 AST 29 U/L (13-39) 18 18:45 ALT 12 U/L (7-52) 18 18:45 Alkaline Phosphatase 34 U/L (34-104) 02/14/18 18:45 Total Protein 6.6 gm/dL (6.0-8.3) 02/14/18 18:45 Albumin 4.0 gm/dL (3.7-5.3) 02/14/18 18:45 Globulin 2.6 gm/dL 02/14/18 18:45 Albumin/Globulin Ratio 1.5 (1.0-1.8) 18 18:45 Triglycerides 57 mg/dL (<150) 18 18:45 Cholesterol 131 mg/dL (<200) 18 18:45 LDL Cholesterol Direct 68 mg/dL (75-193) L 18 18:45 HDL Cholesterol 51 mg/dL (23-92) 18 18:45 TSH 1.87 uIU/ml (0.34-5.60) 18 18:45 Salicylates < 25.0 mg/L (30.0-100.0) L 02/14/18 18:45 Acetaminophen < 10.0 ug/mL (10.0-30.0) L 02/14/18 18:45 Ethyl Alcohol < 10 mg/dL (0-10) 02/14/18 18:45 RPR NONREACTIVE (NONREACTIVE) 02/14/18 18:45 - Physical Exam Vitals and I&O: Vital Signs Temp 97.9 F 02/20/18 19:53 Pulse 104 02/20/18 19:53 Resp 19 02/20/18 19:53 BP 95/60 02/20/18 19:53 Pulse Ox 97 02/20/18 19:53 Intake & Output 02/20/18 02/20/18 02/21/18 06:59 18:59 06:59 Intake Total 120 800 120 Balance 120 800 120 Intake: Oral 120 800 120 Other: # Voids 3 4 2 # Bowel Movements 0 1 0 Active Medications: Current Medications Alendronate Sodium (Fosamax) 70 mg PO QFRI [facility] Stop: 04/18/18 06:29 Last Admin: 02/17/18 06:48 Dose: 70 mg Artificial Tears (Artificial Tears Ophth Soln) 1 drop EACH EYE BID [facility] Stop: 04/17/18 16:59 Last Admin: 02/20/18 13:52 Dose: Not Given Bisacodyl (Dulcolax 10 Mg Supp) 10 mg RC DAILY PRN PRN Reason: Constipation Stop: 04/15/18 22:00 Calcium/Vitamin D (Oscal W/Vitamin D) 1 tab PO DAILY [facility] Stop: 04/16/18 08:59 Last Admin: 02/20/18 13:52 Dose: Not Given Docusate Sodium (Colace) 100 mg PO DAILY [facility] Stop: 04/16/18 08:59 Last Admin: 02/20/18 13:52 Dose: Not Given Escitalopram Oxalate (Lexapro) 5 mg PO Q2D [facility]; Protocol Stop: 04/16/18 08:59 Last Admin: 02/19/18 12:09 Dose: Not Given Guaifenesin/Dextromethorphan (Robitussin Dm) 10 ml PO Q6H PRN PRN Reason: Cough Stop: 04/16/18 00:39 Lorazepam (Ativan) 0.5 mg PO Q6HR PRN; Protocol PRN Reason: Anxiety Stop: 04/15/18 22:05 Last Admin: 02/19/18 23:05 Dose: 0.5 mg Magnesium Hydroxide (Milk Of Magnesia) 30 ml PO DAILY PRN PRN Reason: Constipation Stop: 04/15/18 22:00 Quetiapine Fumarate (Seroquel) 25 mg PO HS [facility]; Protocol Stop: 04/19/18 20:59 Last Admin: 02/20/18 20:59 Dose: 25 mg Simvastatin (Zocor) 20 mg PO HS [facility]; Protocol Stop: 04/16/18 20:59 Last Admin: 02/20/18 21:00 Dose: 20 mg Sodium Phosphate (Fleet Enema) 133 ml RC DAILY PRN PRN Reason: Constipation Stop: 04/15/18 22:00 Vitamin D (Vitamin D3) 2,000 iu PO QFRI [facility] Stop: 04/18/18 06:29 Last Admin: 02/17/18 06:48 Dose: 2,000 iu Vitamin D (Vitamin D) 800 iu PO QFRI [facility] Stop: 04/18/18 06:29 Last Admin: 02/17/18 06:48 Dose: 800 iu Zolpidem Tartrate (Ambien) 5 mg PO HS PRN PRN Reason: Insomnia Stop: 04/15/18 21:43 Last Admin: 02/20/18 21:00 Dose: 5 mg General: weak, lethargic, congested, demented HEENT: NC/AT, PERRLA, EOMI, anicteric sclerae, throat clear, thyromegaly, dry oral mucosa Neck: Supple, No JVD, No thyromegaly Lungs: CTAB Cardiovascular: RRR, Normal S1, Normal S2 Abdomen: soft, non-tender, tender, non-distended, positive bowel sound Extremities: clear Neurological: no change Internal Medicine Assmt/Plan - Assessment Assessment: Weakness: fall precaution education. ALOC: on and off; observe closely. Failure to thrive: work up in progress. Agitation: better. Acute Psychosis: psychiatry consultation appreciated. s/p CVA DVT prophylaxis. D/W family. Nutritional Asmnt/Malnutr-PDOC - Dietary Evaluation Malnutrition Findings (Please click <Entered> for more info): Nutritional Asmnt/Malnutrition Start: 02/17/18 14: 19 Text: Status: Complete Freq: Protocol: Document 02/17/18 14:19 TOI (Rec: 02/17/18 14:43 TOI [email or web address]) Nutritional Asmnt/Malnutrition Patient General Information Nutritional Screening Moderate Risk Diagnosis psychosis Pertinent Medical Hx/Surgical Hx s/p CVA, agitation, psychosis, DJD, anxiety Subjective Information Spoke with RADHA Cash. Pt is non -verbal, tolerating current diet. Pt eats everything with feeding assistance. Per EMR, PO intake 25-50% of meals. Current Diet Order/ Nutrition Support pureed, fortified Pertinent Medications oscal w/ vit D, coalce, seroquel, vit D3, Vit D Pertinent Labs 02/14 glucose 162, A1c 4.7 Nutritional Hx/Data Height 1.55 m Height (Calculated Centimeters) 154.9 Current Weight (lbs) 65.771 kg Weight (Calculated Kilograms) 65.8 Weight (Calculated Grams) 38499.9 [place] Body Weight 105 Body Mass Index (BMI) 27.3 Weight Status Overweight GI Symptoms GI Symptoms None Last BM none Difficult in: None Skin Integrity/Comment: intact Current %PO Poor (25-49%) Estimated Nutritional Goals BEE in Kcals: Adj wt of IBW Calories/Kcals/Kg 25-30 adj wt 52kg Kcals Calculated 7187-9986 Protein: Adj wt of IBW Protein g/k Protein Calculated 52 Fluid: ml 7443-6667 Nutritional Problem No current Nutrition Prob Problem n/A Intervention/Recommendation Comments 1. Continue with pureed diet as ordered. Nurses please feed pt with each meals. 2. Monitor PO intake, wt, labs and skin integrity 3. F/U as low risk in 7 days, 02/24 Expected Outcomes/Goals Expected Outcomes/Goals 1. PO intake to meet at least 75% of nutritional needs. 2. Wt stability, skin to remain intact, labs to approach WNL.
--- NOTE | 2018-02-21 01:35 | Progress Notes ---
DATE: 02/20/2018 PSYCHIATRIC PROGRESS NOTE SUBJECTIVE: Staff was spoken to. The patient is interviewed. Mood is noted to be irritable. Affect is constricted. The patient is isolative and withdrawn. The patient has paranoia, but denies any command hallucinations. The patient is not verbalizing much. Coping skills are noted to be very poor. The patient is getting easily agitated. ASSESSMENT: The patient is still impulsive. PLAN: To continue the patient with the supportive therapy. I encouraged the patient to verbalize the concerns rather than to act out. The patient's family has requested the patient to be provided with a PT and the staff have been informed of the same. JOB# [id number]
[2018-02-21] MEDS: Escitalopram Oxalate 5 mg Tab PO SCH (09:07)
[2018-02-21] MEDS: Polyvinyl Alcohol Ophth Soln 15 mL Bottle EACH EYE SCH ×2 (09:07→18:12)
[2018-02-21] MEDS: Calcium Carb/Vit D 500 mg/200 U Tab PO SCH (09:07)
--- NOTE | 2018-02-21 22:53 | Internal Medicine Prog Note ---
Internal Medicine Subjective - Subjective Service Date: 02/21/18 Patient seen and examined:: without staff Patient is:: awake, non-verbal, interactive, arousable, in bed, agitated, confused Patient Complaints of:: congestion Per staff patient has:: no adverse event Internal Medicine Objective - Results Result Diagrams: 02/14/18 18:45 02/14/18 18:45 Recent Labs: Laboratory Last Values WBC 4.8 Th/cmm (4.8-10.8) 02/14/18 18:45 RBC 3.53 Mil/cmm (3.80-5.20) L 02/14/18 18:45 Hgb 11.9 gm/dL (12-16) L 02/14/18 18:45 Hct 35.4 % (41.0-60) L 02/14/18 18:45 MCV 100.4 fl (81-100) H 02/14/18 18:45 MCH 33.7 pg (27.0-31.0) H 02/14/18 18:45 MCHC Differential 33.6 pg (28.0-36.0) 02/14/18 18:45 RDW 11.1 % (11.5-20.0) L 02/14/18 18:45 Plt Count 328 Th/cmm (150-400) 02/14/18 18:45 MPV 7.2 fl 02/14/18 18:45 Neutrophils % 62.7 % (40.0-80.0) 02/14/18 18:45 Lymphocytes % 26.8 % (20.0-50.0) 02/14/18 18:45 Monocytes % 7.9 % (2.0-10.0) 02/14/18 18:45 Eosinophils % 2.3 % (0.0-5.0) 18 18:45 Basophils % 0.3 % (0.0-2.0) 18 18:45 Sodium 138 mEq/L (136-145) 18 18:45 Potassium 3.8 mEq/L (3.5-5.1) 18 18:45 Chloride 103 mEq/L (98-107) 02/14/18 18:45 Carbon Dioxide 28.5 mEq/L (21.0-31.0) 18 18:45 Anion Gap 10.3 (7.0-16.0) 18 18:45 BUN 13 mg/dL (7-25) 18 18:45 Creatinine 0.6 mg/dL (0.6-1.2) 18 18:45 Est GFR ( Amer) > 60.0 ml/min (>90) 02/14/18 18:45 Est GFR (Non-Af Amer) > 60.0 ml/min 18 18:45 BUN/Creatinine Ratio 21.7 18 18:45 Glucose 162 mg/dL (70-105) H 02/14/18 18:45 Hemoglobin A1c % 4.7 % (4.0-6.0) 02/14/18 18:45 Calcium 9.3 mg/dL (8.6-10.3) 02/14/18 18:45 Total Bilirubin 0.5 mg/dL (0.3-1.0) 02/14/18 18:45 AST 29 U/L (13-39) 18 18:45 ALT 12 U/L (7-52) 18 18:45 Alkaline Phosphatase 34 U/L (34-104) 02/14/18 18:45 Total Protein 6.6 gm/dL (6.0-8.3) 02/14/18 18:45 Albumin 4.0 gm/dL (3.7-5.3) 02/14/18 18:45 Globulin 2.6 gm/dL 02/14/18 18:45 Albumin/Globulin Ratio 1.5 (1.0-1.8) 18 18:45 Triglycerides 57 mg/dL (<150) 18 18:45 Cholesterol 131 mg/dL (<200) 18 18:45 LDL Cholesterol Direct 68 mg/dL (75-193) L 18 18:45 HDL Cholesterol 51 mg/dL (23-92) 18 18:45 TSH 1.87 uIU/ml (0.34-5.60) 18 18:45 Salicylates < 25.0 mg/L (30.0-100.0) L 02/14/18 18:45 Acetaminophen < 10.0 ug/mL (10.0-30.0) L 02/14/18 18:45 Ethyl Alcohol < 10 mg/dL (0-10) 02/14/18 18:45 RPR NONREACTIVE (NONREACTIVE) 02/14/18 18:45 - Physical Exam Vitals and I&O: Vital Signs Temp 99.1 F 02/21/18 14:00 Pulse 99 02/21/18 14:00 Resp 20 02/21/18 14:00 BP 136/65 02/21/18 14:00 Pulse Ox 94 02/21/18 14:00 Intake & Output 02/21/18 02/21/18 02/22/18 06:59 18:59 06:59 Intake Total 120 800 Balance 120 800 Intake: Oral 120 800 Other: # Voids 3 4 # Bowel Movements 1 0 Active Medications: Current Medications Alendronate Sodium (Fosamax) 70 mg PO QFRI [facility] Stop: 04/18/18 06:29 Last Admin: 02/17/18 06:48 Dose: 70 mg Artificial Tears (Artificial Tears Ophth Soln) 1 drop EACH EYE BID [facility] Stop: 04/17/18 16:59 Last Admin: 02/21/18 18:12 Dose: Not Given Bisacodyl (Dulcolax 10 Mg Supp) 10 mg RC DAILY PRN PRN Reason: Constipation Stop: 04/15/18 22:00 Calcium/Vitamin D (Oscal W/Vitamin D) 1 tab PO DAILY [facility] Stop: 04/16/18 08:59 Last Admin: 02/21/18 09:07 Dose: Not Given Docusate Sodium (Colace) 100 mg PO DAILY [facility] Stop: 04/16/18 08:59 Last Admin: 02/21/18 09:07 Dose: Not Given Escitalopram Oxalate (Lexapro) 10 mg PO DAILY [facility]; Protocol Stop: 04/23/18 08:59 Guaifenesin/Dextromethorphan (Robitussin Dm) 10 ml PO Q6H PRN PRN Reason: Cough Stop: 04/16/18 00:39 Lorazepam (Ativan) 0.5 mg PO Q6HR PRN; Protocol PRN Reason: Anxiety Stop: 04/15/18 22:05 Last Admin: 02/21/18 20:27 Dose: 0.5 mg Magnesium Hydroxide (Milk Of Magnesia) 30 ml PO DAILY PRN PRN Reason: Constipation Stop: 04/15/18 22:00 Quetiapine Fumarate (Seroquel) 25 mg PO HS [facility]; Protocol Stop: 04/19/18 20:59 Last Admin: 02/21/18 20:26 Dose: 25 mg Simvastatin (Zocor) 20 mg PO HS [facility]; Protocol Stop: 04/16/18 20:59 Last Admin: 02/21/18 20:26 Dose: 20 mg Sodium Phosphate (Fleet Enema) 133 ml RC DAILY PRN PRN Reason: Constipation Stop: 04/15/18 22:00 Vitamin D (Vitamin D3) 2,000 iu PO QFRI [facility] Stop: 04/18/18 06:29 Last Admin: 02/17/18 06:48 Dose: 2,000 iu Vitamin D (Vitamin D) 800 iu PO QFRI [facility] Stop: 04/18/18 06:29 Last Admin: 02/17/18 06:48 Dose: 800 iu Zolpidem Tartrate (Ambien) 5 mg PO HS PRN PRN Reason: Insomnia Stop: 04/15/18 21:43 Last Admin: 02/21/18 20:28 Dose: 5 mg General: weak, lethargic, congested, demented HEENT: NC/AT, PERRLA, EOMI, anicteric sclerae, throat clear, thyromegaly, dry oral mucosa Neck: Supple, No JVD, No thyromegaly Lungs: CTAB Cardiovascular: RRR, Normal S1, Normal S2 Abdomen: soft, non-tender, tender, non-distended, positive bowel sound Extremities: clear Neurological: no change Internal Medicine Assmt/Plan - Assessment Assessment: ALOC: on and off; observe closely. Failure to thrive: work up in progress. Weakness: fall precaution education. Agitation: better. Acute Psychosis: psychiatry consultation appreciated. s/p CVA DVT prophylaxis. D/W family. Nutritional Asmnt/Malnutr-PDOC - Dietary Evaluation Malnutrition Findings (Please click <Entered> for more info): Nutritional Asmnt/Malnutrition Start: 02/17/18 14: 19 Text: Status: Complete Freq: Protocol: Document 02/17/18 14:19 TOI (Rec: 02/17/18 14:43 TOI [email or web address]) Nutritional Asmnt/Malnutrition Patient General Information Nutritional Screening Moderate Risk Diagnosis psychosis Pertinent Medical Hx/Surgical Hx s/p CVA, agitation, psychosis, DJD, anxiety Subjective Information Spoke with RN Shreya. Pt is non -verbal, tolerating current diet. Pt eats everything with feeding assistance. Per EMR, PO intake 25-50% of meals. Current Diet Order/ Nutrition Support pureed, fortified Pertinent Medications oscal w/ vit D, coalce, seroquel, vit D3, Vit D Pertinent Labs 02/14 glucose 162, A1c 4.7 Nutritional Hx/Data Height 1.55 m Height (Calculated Centimeters) 154.9 Current Weight (lbs) 65.771 kg Weight (Calculated Kilograms) 65.8 Weight (Calculated Grams) 33943.9 [place] Body Weight 105 Body Mass Index (BMI) 27.3 Weight Status Overweight GI Symptoms GI Symptoms None Last BM none Difficult in: None Skin Integrity/Comment: intact Current %PO Poor (25-49%) Estimated Nutritional Goals BEE in Kcals: Adj wt of IBW Calories/Kcals/Kg 25-30 adj wt 52kg Kcals Calculated 7248-9455 Protein: Adj wt of IBW Protein g/k Protein Calculated 52 Fluid: ml 9630-2919 Nutritional Problem No current Nutrition Prob Problem n/A Intervention/Recommendation Comments 1. Continue with pureed diet as ordered. Nurses please feed pt with each meals. 2. Monitor PO intake, wt, labs and skin integrity 3. F/U as low risk in 7 days, 02/24 Expected Outcomes/Goals Expected Outcomes/Goals 1. PO intake to meet at least 75% of nutritional needs. 2. Wt stability, skin to remain intact, labs to approach WNL.
--- NOTE | 2018-02-22 00:41 | Progress Notes ---
DATE: 02/21/2018 SUBJECTIVE: Staff was spoken to. The patient is interviewed. Mood is noted to be irritable. Affect is constricted. The patient's coping skills are noted to be still poor. The patient ____. Insight are noted to be still impaired. Impulse control is noted to be poor. No side effects to the medications are noted. The patient has been having difficult time to cope with the stress. The patient's coping skills are noted to be very poor. The patient tends to be isolative and withdrawn. ASSESSMENT: The patient is still depressed and demented. PLAN: To increase the dose on the Lexapro to 10 mg and follow the patient up with supportive therapy. Please note that the patient is still depressed and getting easily agitated. Plan to continue the patient with his current medications and follow up with the supportive therapy. JOB# [id number]
[2018-02-22] MEDS: Calcium Carb/Vit D 500 mg/200 U Tab PO SCH (08:29)
[2018-02-22] MEDS: Polyvinyl Alcohol Ophth Soln 15 mL Bottle EACH EYE SCH (08:30)
[2018-02-22] MEDS ORDERED: Escitalopram Oxalate 5 mg Tab PO SCH (09:00)
--- NOTE | 2018-02-22 19:52 | Progress Notes ---
DATE: 02/22/2018 SUBJECTIVE: Staff was spoken to. The patient is interviewed. Mood is noted to be irritable. Affect is constricted. The patient has been having ____ anxiety. The patient has been screaming and yelling and has to be given a dose of medications this morning, but the patient has a difficult time to articulate. The patient's family wants the patient back at the facility. ____ care center. The patient at this time is not presenting with a danger to self and hence the patient is going to be discharged for followup on outpatient basis. JOB# [id number]
--- NOTE | 2018-02-24 17:00 | Discharge Summary ---
DATE OF DISCHARGE: 02/22/2018 FINAL DIAGNOSES: 1. Altered level of consciousness, improved. 2. Acute psychosis, improved. 3. Agitation, improved. 4. Failure to thrive, improved. 5. Difficulty walking, stabilized. 6. Status post cerebrovascular accident ____ history. HOSPITAL COURSE: The patient is a 67-year-old [place] French female admitted due to acute altered level of consciousness with agitation, confusion, and acute psychosis. The patient was admitted to Geropsych Unit. A psychiatric consultation requested and greatly appreciated. The patient was closely monitored and medication was adjusted. Her condition stabilized and the family refused to have the patient discharged back to facility under the ____ [facility], which refused the patient. The patient was accepted to [facility]. DISCHARGE CONDITION: Stable. DISPOSITION: [facility]. DISCHARGE MEDICATIONS: Continue medication from here. DIET: Cardiac, soft diet. ACTIVITY: Bed rest with physical therapy. FOLLOWUP: Follow up in one week. [facility]# [id number]
--- NOTE | 2018-02-26 11:39 | Discharge Summary ---
DATE OF DISCHARGE: 02/22/2018 IDENTIFYING DATA: The patient is a 67-year-old woman, resident of [facility]. Information obtained by directly interviewing the patient as well as reviewing the admission papers and they are reliable. JUSTIFICATION FOR HOSPITALIZATION: The patient is admitted on a voluntary basis in view of the acute agitation and aggressive behavior. CHIEF COMPLAINT: "I don't know." HISTORY OF PRESENT ILLNESS: Please review the 02/15/2018 dictation done by me. DIAGNOSES AT THE TIME OF ADMISSION: AXIS I: Psychotic disorder, not otherwise specified. AXIS II: None. AXIS III: As per Dr. Giang. HOSPITAL COURSE AND RESPONSE TO TREATMENT: The patient has been observed on the inpatient unit provided supportive psychotherapy. The patient has been closely monitored. The patient has been encouraged to verbalize the concerns. The patient has a history of metabolic encephalopathy and the patient has been closely monitored. The patient was screaming, yelling and has been kicking. The patient has been contained with escitalopram 5 mg once a day and the patient has been given the lorazepam on a p.r.n. basis and with these medications, the patient was observed. The patient's family felt that the patient was doing fairly well in the retirement facility and the patient was finally discharged to [facility] for further followup. MENTAL STATUS EXAMINATION: At the time of discharge, the patient's mood is noted to be less irritable. Affect is appropriate. Not suicidal or homicidal. Insight and judgment are noted to be improving. Impulse control is noted to be fair. No side effects to the medications are noted. The patient has been able to verbalize the concerns rather than to act out at the time of the discharge. CONDITION: At the time of discharge is noted to be fair with the treatment. JOB# [id number]
== END 2018-02-22 16:15 | DRG 885 ==
LOC: ER 18:22 → GERO2 19:25 → GERO 19:26
PROVIDERS: ADMIT Psychiatry & Neurology Psychiatry; ATTEND Psychiatry & Neurology Psychiatry
DX: F23 Brief psychotic disorder (principal); E78.5 Hyperlipidemia, unspecified; F03.90 Unspecified dementia, unspecified severity, without behavioral disturbance, psychotic disturbance, mood disturbance, and anxiety; F32.9 Major depressive disorder, single episode, unspecified; F29 Unspecified psychosis not due to a substance or known physiological condition; M19.90 Unspecified osteoarthritis, unspecified site; F41.9 Anxiety disorder, unspecified; R62.7 Adult failure to thrive; R53.1 Weakness; Z82.49 Family history of ischemic heart disease and other diseases of the circulatory system; Z86.73 Personal history of transient ischemic attack (TIA), and cerebral infarction without residual deficits
CPT/HCPCS: 36415-UA; 80053-TC; 80061-TC; 80320-TC; 80329-TC; 83036-90; 84443-TC; 85025-TC; 86592-TC; 93005; J2060; Z7610